=== PATIENT | male | born 1980 | race Caucasian/White ===

== ENCOUNTER 2020-07-30 09:16 | Outpatient (CLI) | payer OTHER ==
[2020-07-30 16:30] LABS: #Lymphocytes 2.1 thou/uL (1.20-3.40); #Monocytes 0.5 thou/uL (0.11-0.59); #Neutrophils 3.6 thou/uL (1.40-6.50); %Basophils 0.3 % (0.0-1.0); %Eosinophils 0.1 % (0.0-10.0); %Lymphocytes 33.5 % (21.0-51.0); %Monocytes 8.1 % (0.0-10.0); %Neutrophils 57.9 % (42.0-75.0); Hemoglobin 16.7 g/dL (14.0-18.0); Mean Corpuscular HGB CONC 34.2 g/dL (32.0-36.0); Mean Corpuscular Hemoglobin 30.2 pg (27.0-31.0); Mean Corpuscular Volume 88.2 fL (78.0-98.0); Mean Platelet Volume 7.4 fL (7.4-10.4); Platelet Count 223 thou/uL (130-400); RBC Distribution Width 12.7 % (11.5-14.5); Red Blood Cell (RBC) Count 5.54 mill/uL (4.70-6.10); White Blood Cell (WBC) Count 6.1 thou/uL (4.8-10.8)
[2020-07-30 17:18] LABS: Free T4 (Free Thyroxine) 0.96 ng/dL (0.70-1.48)
[2020-07-31 10:27] LABS: Albumin 4.7 g/dL (3.5-5.0)
[2020-07-31 10:28] LABS: Chloride 107 mmol/L (98-107); Potassium 4.7 mmol/L (3.5-5.1); Sodium 139 mmol/L (136-145)
[2020-07-31 10:29] LABS: Calcium 10.1 mg/dL (7.8-10.44)
[2020-07-31 10:30] LABS: Globulin 2.4 g/dL (2.4-3.5); Glucose 100 mg/dL (70-105); Protein, Total 7.1 g/dL (6.0-8.3); Triglycerides 104 mg/dL (Less than 150)
[2020-07-31 10:31] LABS: Anion Gap 17 mmol/L (10-20); Carbon Dioxide 20 mmol/L (22-29)
[2020-07-31 10:32] LABS: Bilirubin, Total 0.7 mg/dL (0.2-1.2)
[2020-07-31 10:33] LABS: Alkaline Phosphatase 88 U/L (40-110); Calc. Creatinine Clearance 0 mL/min (70-130)
[2020-07-31 10:34] LABS: BUN (Urea Nitrogen) 16 mg/dL (8.9-20.6)
[2020-07-31 10:35] LABS: AST (SGOT) 28 U/L (5-34); Cholesterol 204 mg/dl (< 200 Desired); HDL Cholesterol 41 mg/dL (>60 Neg Risk); LDL Cholesterol, Calculated 142 mg/dL
[2020-07-31 10:36] LABS: ALT (SGPT) 59 U/L (8-55)
[2020-07-31 11:12] LABS: Thyroid Stimulating Hormone 1.404 uIU/mL (0.35-4.94)
== END 2020-07-30 09:17 | disposition home or self-care (01) ==
LOC: BURLAB 09:16
PROVIDERS: ATTEND Family Medicine
DX: Z00.00 Encounter for general adult medical examination without abnormal findings (principal); Z13.6 Encounter for screening for cardiovascular disorders; R53.83 Other fatigue
CPT/HCPCS: 36415; 80053; 80061; 84439; 84443; 85025